=== PATIENT | male | born 1985 | race African-American/Black ===

== ENCOUNTER 2018-12-23 17:13 | Emergency (ER) | payer SELFPAY ==
[~2018-12-23] VITALS: Ht 175.3 cm; Wt 77.1 kg
[2018-12-23 17:25] VITALS: BP 126/82
[2018-12-23] MEDS ORDERED: NEOMY/BACITR/POLYMYXIN OINT PACKET. TP ONE (17:30)
--- NOTE | 2018-12-23 17:43 | PHYS DOC ---
Adult General Chief Complaint Chief Complaint: LACERATION/AVULSION HPI HPI Patient is a 33 year old AA jd who presents to the emergency department with complaints of a laceration over the PIP of the fifth digit of his left hand. Patient states the injury happened approximately one hour prior to arrival. Patient states he was using a picker box operator to open a package when he actually cut his finger. He denies any numbness, tingling, weakness, or decreased range of motion of the affected finger. He is unsure when his last tetanus immunization was currently rates his pain a 10 out of 10 on the pain scale, he denies any alleviating factors. Review of Systems Review of Systems Constitutional: Denies fever or chills [] Musculoskeletal: Denies joint pain [] Integument: See history of present illness Neurologic: Denies headache, focal weakness or sensory changes [] Complete systems were reviewed and found to be within normal limits, except as documented in this note. Current Medications Current Medications Current Medications Medications (Trade) Dose Ordered Sig/Nadeem Start Time Stop Time Status Last Admin Dose Admin Diphtheria/ Tetanus/Acell Pertussis (Boostrix) 0.5 ml ONCE ONCE 12/23/18 17:45 12/23/18 17:46 DC 12/23/18 17:45 0.5 ML Lidocaine HCl (Xylocaine-Mpf 1% 2ml Vial) 6 ml 1X ONCE 12/23/18 17:45 12/23/18 17:46 DC 12/23/18 17:45 6 ML Neomycin/ Polymyxin/ Bacitracin (Triple Antibiotic Ointment) 1 pkt 1X ONCE 12/23/18 17:30 12/23/18 17:37 DC 12/23/18 17:30 1 PKT Tetanus/ Diphtheria Toxoids (Tenivac Syringe) 0.5 ml STK-MED ONCE 12/23/18 17:47 12/23/18 17:47 DC Allergies Allergies Allergies Coded Allergies Type Severity Reaction Last Updated Verified No Known Drug Allergies 12/23/18 No Physical Exam Physical Exam Constitutional: Well developed, well nourished, no acute distress, non-toxic appearance. [] HENT: Normocephalic, atraumatic, bilateral external ears normal,nose normal. [] Eyes: PERRLA, EOMI, conjunctiva normal, no discharge. [] Neck: Normal range of motion, no stridor. [] Cardiovascular:Heart rate regular rhythm Lungs & Thorax: Respirations even and unlabored, no retractions, no respiratory distress Skin: Warm, dry, no erythema, no rash; 2 cm vertical laceration noted over the PIP of the fifth digit of the left hand, bleeding controlled by pressure dressing.. [] Extremities: L hand: No bony tenderness, no cyanosis, no clubbing, ROM intact, no edema. [] Neurologic: Alert and oriented X 3, normal motor function, normal sensory fun ction, no focal deficits noted. [] Psychologic: Affect normal, judgement normal, mood normal. [] Current Patient Data Vital Signs Vital Signs Date Time Temp Pulse Resp B/P (MAP) Pulse Ox O2 Delivery O2 Flow Rate FiO2 12/23/18 17:25 98.4 68 16 126/82 (97) 99 Room Air 98.4 EKG EKG [] Radiology/Procedures Radiology/Procedures Laceration Repair by me: Anesthesia: 1% lidocaine locally Location: 5th digit L hand Tendon/Joint/Nerves: No injury Foreign body: None detected after copious irrigation and exploration Technique: 5 Simple Interrupted Sutures with 4-0 Ethilon Complexity: No subcutaneous sutures/mucosal repair/edge excision Post Closure Length: 2 cm Patient's bleeding was easily controlled in the department and there is no indication of anemia. No evidence of compartment syndrome, neurologic injury, vascular injury, open joint, tendon laceration, or foreign body. Patient is appropriate for outpatient follow up. Course & Med Decision Making Course & Med Decision Making Pertinent Labs and Imaging studies reviewed. (See chart for details) [] Dragon Disclaimer Dragon Disclaimer This electronic medical record was generated, in whole or in part, using a voice recognition dictation system. Departure Departure Impression: Primary Impression: Laceration of left index finger without foreign body without damage to nail Disposition: 01 HOME, SELF-CARE Condition: STABLE Referrals: NO PCP (PCP) Patient Instructions: Laceration Care, Adult, [id number] Additional Instructions: Keep the area clean and dry. You may take Tylenol or ibuprofen as needed for pain. Keep the dressing that was placed today on for 24 hours then change the dressing twice a day and apply antibiotic ointment to the area. Follow-up with your primary care doctor, or return to the emergency room in 14 days to have the sutures removed, wear the aluminum finger splint until the sutures have been removed. Return to sooner if you develop signs of infection including: redness, warmth, drainage, or a fever. Splinting Splinting : Location: L hand 5th digit Pre-Made Type: metal (aluminum finger splint) Pre-Proc Neuro Vasc Exam: normal Post-Proc Neuro Vasc Exam: normal, unchanged from pre-exam Problem Qualifiers Primary Impression: Laceration of left index finger without foreign body without damage to nail Encounter type: initial encounter Qualified Codes: S61.211A - Laceration without foreign body of left index finger without damage to nail, initial encounter MIRNA REYNA PUBLIC HEALTH NUTRITIONIST Dec 23, 2018 17:43
[2018-12-23] MEDS ORDERED: DIPHTH,PERTUSS(ACELL),TET TOX 0.5 ML DISP.SYRIN. VAX IM ONE (17:45)
[2018-12-23] MEDS ORDERED: LIDOCAINE 1% PF 2 ML VIAL. INJ ONE (17:45)
[2018-12-23] MEDS ORDERED: TETANUS AND DIPHTHERIA TOX/PF 0.5 ML DISP.SYRIN. VAX IM ONE (17:47)
== END 2018-12-23 18:53 | disposition home or self-care (01) ==
LOC: ER 17:13
DX: S61.217A Laceration without foreign body of left little finger without damage to nail, initial encounter (principal); W26.8XXA Contact with other sharp object(s), not elsewhere classified, initial encounter; Y93.89 Activity, other specified; Y92.89 Other specified places as the place of occurrence of the external cause; Y99.8 Other external cause status
CPT/HCPCS: 12001; 90471; 90715; 99283

== ENCOUNTER 2019-01-08 12:23 | Emergency (ER) | payer SELFPAY ==
[~2019-01-08] VITALS: Ht 177.8 cm; Wt 77.1 kg
[2019-01-08 12:41] VITALS: BP 151/67
--- NOTE | 2019-01-08 12:42 | PHYS DOC ---
Past Medical History Past Medical History: No Pertinent History Past Surgical History: No Surgical History Alcohol Use: Heavy Drug Use: None Adult General Chief Complaint Chief Complaint: SUTURE/STAPLE REMOVAL HPI HPI Patient is a 33 year old male patient who presents to the ED today for suture removal. Patient had her laceration repaired done on December 23. Denies any issues with the wound healing Review of Systems Review of Systems Constitutional: Denies fever or chills [] Musculoskeletal: Denies back pain or joint pain [] Integument: Visit for suture removal Neurologic: Denies headache, focal weakness or sensory changes [] All other systems were reviewed and found to be within normal limits, except as documented in this note. Allergies Allergies Allergies Coded Allergies Type Severity Reaction Last Updated Verified No Known Drug Allergies 12/23/18 No Physical Exam Physical Exam Constitutional: Well developed, well nourished, no acute distress, non-toxic lambert earance. [] Skin: Warm, dry, 5 interrupted sutures noted on the left pinky finger PIP joint, incisional site is well approximated. No signs of infection Back: No tenderness, no CVA tenderness. [] Extremities: No tenderness, no cyanosis, no clubbing, ROM intact, no edema. [] Neurologic: Alert and oriented X 3, normal motor function, normal sensory function, no focal deficits noted. [] Psychologic: Affect normal, judgement normal, mood normal. [] EKG EKG [] Radiology/Procedures Radiology/Procedures [] Course & Med Decision Making Course & Med Decision Making Pertinent Labs and Imaging studies reviewed. (See chart for details) 5 interrupted sutures were removed from patient's pinky finger by me. Neurovascular exam is intact and in pinky finger. Wound has no signs of infection. Return precautions provided. Dragon Disclaimer Dragon Disclaimer This electronic medical record was generated, in whole or in part, using a voice recognition dictation system. Departure Departure Impression: Primary Impression: Encounter for removal of sutures Disposition: 01 HOME, SELF-CARE Condition: STABLE Referrals: NO PCP (PCP) follow up with your doctor in 1-2 weeks Patient Instructions: Suture Removal-Brief Additional Instructions: You had stitches removed from the left pinky finger. Keep the area clean and dry. You can shower and wash the area. Continue applying Neosporin to it daily for one week. MAYELA GARCIA REAL ESTATE ACCOUNT EXECUTIVE Jan 08, 2019 12:42
== END 2019-01-08 13:00 | disposition home or self-care (01) ==
LOC: ER 12:23
DX: S61.217D Laceration without foreign body of left little finger without damage to nail, subsequent encounter (principal); F10.20 Alcohol dependence, uncomplicated; Y90.9 Presence of alcohol in blood, level not specified; X58.XXXD Exposure to other specified factors, subsequent encounter
CPT/HCPCS: 99281

== ENCOUNTER 2019-07-19 12:38 | Emergency (ER) | payer SELFPAY ==
[~2019-07-19] VITALS: Ht 175.3 cm; Wt 75.0 kg
[2019-07-19 12:46] VITALS: BP 147/85
--- NOTE | 2019-07-19 13:44 | RAD ---
CHEST AP ONLY Clinical indications: Shortness of breath. COMPARISON: None available. Findings: No acute lung infiltrate or pleural effusion or pulmonary edema or lung mass or pneumothorax is seen. The heart size, pulmonary vasculature, mediastinum and both gerson are unremarkable. Impression: No acute radiographic abnormality is seen. Electronically signed by: Deonte Tamayo MD (07/19/2019 1:42 PM) [id number]
--- NOTE | 2019-07-19 13:54 | PHYS DOC ---
Past Medical History Past Medical History: No Pertinent History Past Surgical History: No Surgical History Smoking Status: Current Every Day Smoker Alcohol Use: Heavy Drug Use: None General Adult EDM: Chief Complaint: SHORTNESS OF BREATH HPI: HPI: Patient is a 34 year old male presenting to the ED with a chief complaint of shortness of breath. Patient states that he used ecstasy last night and proceeded to do Epson bath. Patient states that he thinks that he may have pulled his left thigh muscle and was trying to soak it in Epson salt. Patient states that at that time he felt short of breath and so came into the ER. Currently patient is asymptomatic. Review of Systems: Review of Systems: Constitutional: Denies fever or chills. [] Eyes: Denies change in visual acuity. [] HENT: Denies nasal congestion or sore throat. [] Respiratory: Denies cough or shortness of breath. [] Cardiovascular: Denies chest pain or edema. [] GI: Denies abdominal pain, nausea, vomiting Musculoskeletal: Complains of muscle pain in his left thigh Neurologic: Denies headache, focal weakness or sensory changes. [] Heart Score: Risk Factors: Risk Factors: DM, Current or recent (<one month) smoker, HTN, HLP, family history of CAD, obesity. Risk Scores: Score 0 - 3: 2.5% MACE over next 6 weeks - Discharge Home Score 4 - 6: 20.3% MACE over next 6 weeks - Admit for Clinical Observation Score 7 - 10: 72.7% MACE over next 6 weeks - Early Invasive Strategies Allergies: Allergies: Allergies Coded Allergies Type Severity Reaction Last Updated Verified No Known Drug Allergies 12/23/18 No Physical Exam: PE: Constitutional: Well developed, well nourished, no acute distress, non-toxic appearance. [] HENT: Normocephalic, atraumatic Eyes: EOMI Neck: Normal range of motion, Supple Cardiovascular:Heart rate regular rhythm Lungs & Thorax: Bilateral breath sounds clear to auscultation [] Abdomen: Bowel sounds normal, soft, no tenderness Extremities: No tenderness, ROM intact Neurologic: Alert and oriented X 3 Current Patient Data: Vital Signs: Vital Signs Date Time Temp Pulse Resp B/P (MAP) Pulse Ox O2 Delivery O2 Flow Rate FiO2 07/19/19 12:46 99.1 66 16 147/85 (105) 100 Room Air 99.1 EKG: EKG: [] Radiology/Procedures: Radiology/Procedures: [] Impression: Chest Impression: No acute radiographic abnormality is seen. Course & Med Decision Making: Course & Med Decision Making Pertinent Imaging studies reviewed. (See chart for details) Chest x-ray shows no acute disease. Lungs are clear to auscultation bilaterally. Patient's oxygen saturations have been 100% to 99% on room air. Patient does not have any labored breathing. Patient can be discharged for outpatient follow-up. I instructed patient to take Motrin for his muscle strain. Discussed results and plan of care with patient. Patient is instructed to follow up with PCP in one to 2 days. Appropriate discharge instructions given to patient to return to the ED or to seek immediate medical evaluation. Patient is instructed to return to the ED if symptoms worsen or if any concerns. Dragon Disclaimer: Dragon Disclaimer: This electronic medical record was generated, in whole or in part, using a voice recognition dictation system. Departure Departure Impression: Primary Impression: Dyspnea Additional Impression: Muscle strain of left thigh Disposition: 01 HOME, SELF-CARE Condition: STABLE Referrals: NO PCP (PCP) Patient Instructions: Muscle Cramps, [id number], Shortness of Breath Additional Instructions: Please return to the ED if symptoms worsen or if any concerns. Please follow-up with PCP in 1 to 2 days. You may use Motrin and/or ice the left thigh for symptomatic relief. ZANE MARTINEZ DO July 19, 2019 13:54
== END 2019-07-19 14:10 | disposition home or self-care (01) ==
LOC: ER 12:38
DX: S76.912A Strain of unspecified muscles, fascia and tendons at thigh level, left thigh, initial encounter (principal); R06.02 Shortness of breath; F17.200 Nicotine dependence, unspecified, uncomplicated; F10.20 Alcohol dependence, uncomplicated; Y90.9 Presence of alcohol in blood, level not specified; X50.9XXA Other and unspecified overexertion or strenuous movements or postures, initial encounter; Y93.89 Activity, other specified; Y92.89 Other specified places as the place of occurrence of the external cause; Y99.8 Other external cause status
CPT/HCPCS: 71045; 99283

== ENCOUNTER 2020-04-04 10:30 | Emergency (ER) | payer SELFPAY ==
[2020-04-04] MEDS ORDERED: metroNIDAZOLE 500 MG TABLET ONE (11:10)
[2020-04-04] MEDS ORDERED: cefTRIAXone IM 500 MG VIAL. IM ONE (11:10)
[2020-04-04] MEDS ORDERED: DOXYCYCLINE HYCLATE 100 MG TABLET ONE (11:10)
[2020-04-04 16:49] LABS: BILIRUBIN,URINE NEGATIVE (NEG); CLARITY,URINE CLEAR; COLOR,URINE YELLOW; NITRITE,URINE NEGATIVE (NEG); PH,URINE 5.5 (<5.0-8.0); PROTEIN,URINE NEGATIVE (NEG-TRACE); UROBILINOGEN,URINE 0.2 mg/dL (0.2 mg/dL)
[2020-04-04 17:20] LABS: AMORPHOUS SEDIMENT,UR PRESENT /HPF; BACTERIA,URINE 0 /HPF (0-FEW); RBC,URINE 0 /HPF (0-2); WBC,URINE 0 /HPF (0-4)
== END 2020-04-04 11:30 | disposition home or self-care (01) ==
LOC: ER 10:30
DX: Z20.2 Contact with and (suspected) exposure to infections with a predominantly sexual mode of transmission (principal)
CPT/HCPCS: 81001; 87491; 87591; 96372; 99283; J0696

== ENCOUNTER 2021-03-14 19:33 | Emergency (ER) | payer OTHER | END 2021-03-14 19:35 | disposition left against medical advice (07) | LOC: ER 19:33 | DX: Z04.1 Encounter for examination and observation following transport accident (principal); Z53.21 Procedure and treatment not carried out due to patient leaving prior to being seen by health care provider ==

== ENCOUNTER 2021-05-19 09:02 | Emergency (ER) | payer SELFPAY ==
[~2021-05-19] VITALS: Ht 157.5 cm; Wt 79.5 kg
[2021-05-19 09:07] VITALS: BP 137/78
[2021-05-19] MEDS ORDERED: cefTRIAXone IM 500 MG VIAL. IM ONE (09:15)
--- NOTE | 2021-05-19 09:28 | PHYS DOC ---
Past Medical History Past Medical History: No Pertinent History Past Surgical History: No Surgical History Smoking Status: Current Every Day Smoker Alcohol Use: Heavy Drug Use: None General Adult EDM: Chief Complaint: SEXUALLY TRANSMITTED DISEASE HPI: HPI: Patient is a 36 year old male who presents with 3 days of penile discharge with burning with urination. He states that he is unaware if any of his sexual partners has an STD. He denies abdominal pain, back pain, nausea, vomiting, diarrhea, fever, blood in his urine, dizziness, headache, penile sores. Has a past medical history of smoking. Denies any pain at this time. Review of Systems: Review of Systems: Constitutional: Denies fever or chills. [] Eyes: Denies change in visual acuity. [] HENT: Denies nasal congestion or sore throat. [] Respiratory: Denies cough or shortness of breath. [] Cardiovascular: Denies chest pain or edema. [] GI: Denies abdominal pain, nausea, vomiting, bloody stools or diarrhea. [] : Denies dysuria. + Penile discharge , + burning with urination [] Musculoskeletal: Denies back pain or joint pain. [] Integument: Denies rash. [] Neurologic: Denies headache, focal weakness or sensory changes. [] Endocrine: Denies polyuria or polydipsia. [] Lymphatic: Denies swollen glands. [] Psychiatric: Denies depression or anxiety. [] Heart Score: C/O Chest Pain: No Current Medications: Current Medications Medications (Trade) Dose Ordered Sig/[facility] Start Time Stop Time Status Last Admin Dose Admin Ceftriaxone Sodium (Rocephin Im) 500 mg 1X ONCE 05/19/21 09:15 05/19/21 09:17 DC Allergies: Allergies: Allergies Coded Allergies Type Severity Reaction Last Updated Verified No Known Drug Allergies 05/19/21 No Physical Exam: PE: Constitutional: Well developed, well nourished, no acute distress, non-toxic appearance. [] HENT: Normocephalic, atraumatic, bilateral external ears normal, oropharynx moist, no oral exudates, nose normal. [] Eyes: PERRLA, EOMI, conjunctiva normal, no discharge. [] Neck: Normal range of motion, no tenderness, supple, no stridor. [] Cardiovascular:Heart rate regular rhythm, no murmur [] Lungs & Thorax: Bilateral breath sounds clear to auscultation [] Abdomen: Bowel sounds normal, soft, no tenderness, no masses, no pulsatile masses. [] Skin: Warm, dry, no erythema, no rash. [] Back: No tenderness, no CVA tenderness. [] Extremities: No tenderness, no cyanosis, no clubbing, ROM intact, no edema. [] Neurologic: Alert and oriented X 3, normal motor function, normal sensory function, no focal deficits noted. [] Psychologic: Affect normal, judgement normal, mood normal. [] Normal physical exam Current Patient Data: Vital Signs: Vital Signs Date Time Temp Pulse Resp B/P (MAP) Pulse Ox O2 Delivery O2 Flow Rate FiO2 05/19/21 09:07 98.6 73 16 137/78 (97) 99 Room Air 98.6 EKG: EKG: [] Radiology/Procedures: Radiology/Procedures: [] Course & Med Decision Making: Course & Med Decision Making Pertinent Labs and Imaging studies reviewed. (See chart for details) See HPI. Alert and oriented x4. Ambulatory steady gait. Skin pink warm and dry. No CVA tenderness. Abdomen is soft and nontender. No penile discharge seen and no source seen on penis. Urinalysis is sent for chlamydia and gonorrhea. Patient is educated that this will come back in 48 hours and he will be called only if something is positive. He is treated here with Rocephin and will be sent home with doxycycline. [] Martha Disclaimer: Dragon Disclaimer: This electronic medical record was generated, in whole or in part, using a voice recognition dictation system. Departure Departure Impression: Primary Impression: Concern about sexual dysfunction in male without diagnosis Disposition: 01 HOME / SELF CARE / HOMELESS Condition: STABLE Referrals: NO PCP (PCP) Patient Instructions: Sexually Transmitted Disease Additional Instructions: Follow-up with your primary care provider if needed. Do not have sex for 10 days after you have finished antibiotics. Make sure all sexual partners are treated. Take medication as prescribed and with food. You will be called in 48 hours only if something is positive. Scripts Doxycycline Hyclate (DOXYCYCLINE HYCLATE) 100 Mg Capsule 1 CAP PO BID, #20 CAP Prov: GUILLE DAY APRN 05/19/21 GUILLE DAY APRN May 19, 2021 09:28
[2021-05-19 09:32] LABS: BACTERIA,URINE FEW /HPF (0-FEW)
[2021-05-19] MEDS ORDERED: DOXY100C3 PO (09:41)
== END 2021-05-19 10:04 | disposition home or self-care (01) ==
LOC: ER 09:02
DX: R36.9 Urethral discharge, unspecified (principal); R30.0 Dysuria; Z20.2 Contact with and (suspected) exposure to infections with a predominantly sexual mode of transmission; F17.200 Nicotine dependence, unspecified, uncomplicated; F10.20 Alcohol dependence, uncomplicated; Y90.9 Presence of alcohol in blood, level not specified
CPT/HCPCS: 81001; 87086; 87491; 87591; 96372; 99283; J0696